=== PATIENT | male | born 1985 | race Caucasian/White ===

== ENCOUNTER 2017-08-19 06:08 | Day surgery (SDC) | payer OTHER ==
[~2017-08-19 06:08] MED LIST: Lactated Ringers 1,000 ML IV SCH
[2017-08-19] MEDS ORDERED: DIPRIVAN 200 MG/20 ML IV ONE (06:09)
[2017-08-19] MEDS ORDERED: Ketamine HCl 50 MG/ML IV ONE (06:09)
[2017-08-19 08:43] VITALS: PULSE 63; O2SAT 99
[2017-08-19 09:01] VITALS: BP 142/90
--- NOTE | 2017-08-19 13:14 | OP ---
SURGERY DATE/TIME: 08/19/2017 0745 PREOPERATIVE DIAGNOSIS: Intermittent left lower quadrant pain. POSTOPERATIVE DIAGNOSIS: Normal colon. PROCEDURE: Diagnostic colonoscopy. SURGEON: Trace Villasenor M.D. ANESTHESIA: MAC by Alpesh Newsome CRNA. ESTIMATED BLOOD LOSS: None. SPECIMENS: None. DESCRIPTION OF PROCEDURE: After informed written consent was obtained, the patient was taken to the endoscopy suite. He underwent monitored anesthesia and digital rectal exam showed normal sphincter tone and no internal lesions. The scope was inserted into the rectum and sequentially the entire colonic mucosa was traversed. The level of cecum was reached and verified with direct visualization of ileocecal valve. Upon withdrawal careful mucosal inspection revealed no obvious abnormalities. Prior to withdrawal retroflexion was performed and was within normal limits. The scope was removed and the patient was transferred to the recovery room in excellent condition.
== END 2017-08-19 09:18 | disposition home or self-care (01) ==
LOC: SDC 06:08
PROVIDERS: ATTEND Family Medicine
PROC: 0DJD8ZZ Inspection of Lower Intestinal Tract, Via Natural or Artificial Opening Endoscopic (ICD-10-PCS; principal; 2017-08-19)
DX: R10.32 Left lower quadrant pain (principal)
CPT/HCPCS: 00812; J2704